=== PATIENT | female | born 2000 | race Caucasian/White ===

== ENCOUNTER 2020-06-03 11:15 | Emergency (ER) | payer SELFPAY ==
[2020-06-03 11:20] VITALS: BP 139/99; PULSE 93; RESP 18; TEMP 36.3
--- NOTE | 2020-06-03 11:35 | ED.ABDPAIN ---
HPI - Abdominal Pain General Chief Complaint: Vaginal Bleeding Stated Complaint: VAG BLEEDING Time Seen by Provider: 06/03/20 11:22 Source: patient Mode of arrival: ambulatory Limitations: no limitations History of Present Illness HPI narrative: Patient with 19-year-old female who presents to emergency department for evaluation of vaginal bleeding has been present since last week patient has been bleeding off and on noting this morning the bleeding became heavier going through a super absorbent pad in 2 hours patient also noted intensified cramping. Patient was placed on control by gynecology in the recent past. On arrival patient notes she took ibuprofen and Tylenol with improvement. Related Data Home Medications Medication Instructions Recorded Confirmed drospirenone (contraceptive) 4 mg PO DAILY 06/03/20 [Slynd] Allergies Allergy/AdvReac Type Severity Reaction Status Date / Time amoxicillin Allergy Unknown Unknown Verified 05/15/19 14:42 corn Allergy Unknown RASH Verified 05/15/19 14:42 Penicillins Allergy Unknown Verified 05/15/19 14:42 wheat Allergy Unknown RASH Verified 05/15/19 14:42 seasonal allergens AdvReac Unknown Uncoded 05/10/17 18:37 Review of Systems Review of Systems: All systems reviewed & are unremarkable except as noted in HPI and below PMFSH Past Medical History Medical History (Updated 06/03/20 @ 12:49 by Maurice Gore PA-C) Obesity Exam Narrative: Exam Narrative: GENERAL: Well-appearing, obese, and in no acute distress. HEAD: Normocephalic, atraumatic. EYES: PERRLA and EOMI. ENT: Nares clear, no rhinorrhea or epistaxis. Mucous membranes moist. Oropharynx without tonsillar hypertrophy exudate or other lesions. NECK: Supple. No adenopathy or masses. CHEST: Clear to auscultation. No respiratory distress. No wheezes rales or rhonchi HEART: Regular rate and rhythm. No murmur heard. Normal peripheral pulses. ABDOMEN: Soft, nontender, nondistended EXTREMITIES: Normal range of motion. No edema. SKIN: Warm, dry, no rash. NEURO: No focal deficits. Alert and oriented x3. PSYCH: Normal mood and affect. Course Course Emergency Course: Patient in the room in no distress no high risk changes in the blood work felt appropriate for outpatient reevaluation by gynecology provided with reasons to return. Patient hemodynamically stable Vital Signs Vital signs: Vital Signs Temperature 97.4 F L 06/03/20 11:20 Pulse Rate 93 06/03/20 11:20 Respiratory Rate 18 06/03/20 11:20 Blood Pressure 139/99 H 06/03/20 11:20 Temperature 97.4 F L 06/03/20 11:20 Pulse Rate 86 06/03/20 12:02 Respiratory Rate 18 06/03/20 11:20 Blood Pressure 119/83 06/03/20 12:02 MDM - Abdominal Pain MDM Narrative Medical decision making narrative: Patient with vaginal bleeding hemodynamically stable no high risk changes in the blood work or imaging hydrated in the emergency department given IV Tylenol in the room in no distress felt appropriate for outpatient reevaluation by gynecology provided with reasons to return patient is afebrile nontoxic-appearing no distress Lab Data Result diagrams: 06/03/20 11:44 06/03/20 11:44 Labs: Lab Results 06/03/20 06/03/20 Range/Units 11:44 11:44 WBC 8.7 (4.5-10.0) K/mm3 RBC 4.73 (4.2-5.4) M/mm3 Hgb 13.4 (12.0-15.0) g/dL Hct 39.9 (37.0-47.0) % MCV 84.4 (80-100) fl MCH 28.3 (26-34) pg MCHC 33.6 (32-36) g/dl RDW 14.2 (11.5-14.5) % Plt Count 295 (150-375) k/mm3 MPV 9.6 (7.4-10.4) fl Immature Gran % (Auto) 0.2 (0-0.5) % Neut % (Auto) 58.9 (45.5-73.1) % Lymph % (Auto) 32.7 (18.3-44.2) % [place] % (Auto) 5.4 (2.6-8.5) % Eos % (Auto) 2.5 (0-4.4) % Baso % (Auto) 0.3 (0.2-1.2) % Lymph # (Auto) 2.83 (0.9-3.2) K/mm3 [place] # (Auto) 0.5 (0.1-0.6) K/mm3 Eos # (Auto) 0.2 (0-0.3) K/mm3 Baso # (Auto) 0.0 (0.0-0.1) K/mm3 Abs Immat Gran (auto) 0.02
[2020-06-03 11:55] LABS: Basophils Percent Auto 0.3 % (0.2-1.2); Eosinophils Absolute Auto 0.2 K/mm3 (0-0.3); Eosinophils Percent Auto 2.5 % (0-4.4); Hematocrit 39.9 % (37.0-47.0); Hemoglobin 13.4 g/dL (12.0-15.0); Immature Granulocyte Absolute 0.02 K/mm3 (0.00-0.031); Immature Granulocyte Percent A 0.2 % (0-0.5); Lymphocytes Absolute Auto 2.83 K/mm3 (0.9-3.2); Lymphocytes Percent Auto 32.7 % (18.3-44.2); Mean Corpuscular HGB Conc 33.6 g/dl (32-36); Mean Corpuscular Hemoglobin 28.3 pg (26-34); Mean Corpuscular Volume 84.4 fl (80-100); Mean Platelet Volume 9.6 fl (7.4-10.4); Monocytes Absolute Auto 0.5 K/mm3 (0.1-0.6); Monocytes Percent Auto 5.4 % (2.6-8.5); Neutrophils Absolute Auto 5.1 K/mm3 (1.3-6.7); Neutrophils Percent Auto 58.9 % (45.5-73.1); Platelet Count Result 295 k/mm3 (150-375); Red Blood Count 4.73 M/mm3 (4.2-5.4); Red Cell Distribution Width 14.2 % (11.5-14.5); White Blood Count 8.7 K/mm3 (4.5-10.0)
[2020-06-03] MEDS: SODIUM CHLORIDE 0.9% IV 1,000 ML 999 ML IV CONT (11:56)
[2020-06-03 11:59] VITALS: BP 121/66; PULSE 75
[2020-06-03 12:01] VITALS: BP 129/76; PULSE 78
[2020-06-03 12:02] VITALS: BP 119/83; PULSE 86
[2020-06-03 12:06] LABS: Blood Urea Nitrogen 11 mg/dL (7-17); Calcium 8.9 mg/dL (8.4-10.2); Carbon Dioxide 21 mmol/L (22-30); Chloride 107 mmol/L (98-107); Estimated Glomerular Filt Rate > 60; Glucose 118 mg/dL (65-105); Potassium 4.1 mmol/L (3.4-5.0); Sodium 138 mmol/L (137-145)
[2020-06-03 13:10] VITALS: BP 130/70; PULSE 80; RESP 80; O2SAT 99
== END 2020-06-03 13:12 | disposition home or self-care (01) ==
PROVIDERS: Emergency Medicine Emergency Medical Services; Emergency Provider Emergency Medicine; PCP Family Medicine
DX: N93.9 Abnormal uterine and vaginal bleeding, unspecified (principal); E66.9 Obesity, unspecified
CPT/HCPCS: 36415; 80048; 85025; 96361; 96374; 99284; J0131; J7030

== ENCOUNTER → 2021-05-07 00:09 | Outpatient (CLI) | payer OTHER, SELFPAY ==
[2021-05-07 19:27] LABS: SARS-CoV-2 RNA PCR Negative
== END ==
PROVIDERS: PCP Family Medicine; Visit Provider Obstetrics & Gynecology
DX: Z01.812 Encounter for preprocedural laboratory examination (principal); Z20.822 Contact with and (suspected) exposure to COVID-19
CPT/HCPCS: C9803; U0003; U0005

== ENCOUNTER 2021-05-10 00:08 | Day surgery (SDC) | payer OTHER, SELFPAY ==
[2021-04-27 10:52] VITALS: BMI 49.0
--- NOTE | 2021-05-09 13:49 | WPDANESEPPF ---
Anes - Initial Pre Proc Eval Procedure: Operation Date: 05/10/21 10:30 Proposed Procedures p Hysteroscopy Endometrial Biopsy With Polypectomy - Omar Grey MD Date/Time: 05/09/21 13:49 Surgeon: Omar Grey MD Pre Op Diagnosis: lesion of endometrium Patient Data Age: 20 Gender: F Height: 1.63 m Weight: 129.54 kg Allergies Allergy/AdvReac Type Severity Reaction Status Date / Time amoxicillin Allergy Unknown Hives Verified 04/27/21 10:48 corn Allergy Unknown RASH Verified 04/27/21 10:48 Penicillins Allergy Unknown Hives Verified 04/27/21 10:48 wheat Allergy Unknown RASH Verified 04/27/21 10:48 seasonal allergens AdvReac Unknown Congested Uncoded 04/27/21 10:48 Home Medications Medication Instructions Recorded Confirmed Type drospirenone (contraceptive) 4 mg PO DAILY 06/03/20 04/27/21 History [Slynd] albuterol sulfate 1 puff INHALATION PRN PRN 04/27/21 04/27/21 History cyclobenzaprine [Flexeril] 10 mg PO TID PRN 04/27/21 04/27/21 History naproxen 500 mg PO BID PRN 04/27/21 04/27/21 History Patient hx anesthesia problems: none Family hx anesthesia problems: none PMFSH Past Medical History Medical History (Updated 05/09/21 @ 13:49 by Norm Westbrook MD) Fibromyalgia Morbid obesity with BMI of 45.0-49.9, adult Obesity Social History Social History Smoking status: Light tobacco smoker Tobacco type: cigarettes Second hand tobacco smoke exposure: Yes Additional smoking assessment comments: STATES MAYBE WILL SMOKE 1-2 CIGARETTES WHILE DRINKING Alcohol intake: current Alcohol use details: STATES MAYBE 3-4 DRINKS EVERY 2 WEEKS Substance use: current Substance use type: marijuana Other substance usage details: 1/3GM DAILY Last use: 04/26/21 Living arrangements: with family Spiritual care concerns: No Anes - Eval Final PreProcedure Day of Procedure 05/09/21 13:49 Patient weight: morbidly obese Heart: regular rate and rhythm Lungs: clear to auscultation and normal air movement Airway: Mallampati scale class II Neurological: alert and oriented Last oral intake: >/= 8 hours ASA classification: III Emergent: no Anesthetic plan: proceed Anesthesia type and monitoring: general LMA Informed Consent: The patient's anesthetic plan and its attendant risks and benefits were discussed with the patient/family/POA. Questions were solicited and answers provided to the satisfaction of the patient/family/POA.
[2021-05-10] MEDS: LACTATED RINGERS 1,000 ML 30 ML IV CONT (09:31)
[2021-05-10] MEDS: ACETAMINOPHEN 500 MG TABLET 1000 MG PO (09:32)
[2021-05-10 09:33] VITALS: BP 147/97; PULSE 94; RESP 16; TEMP 36.1; O2SAT 99; BMI 50.9
--- NOTE | 2021-05-10 09:56 | WPDHPUPDATE1 ---
History and Physical Update Update Date/Time: 05/10/21 09:56 History and Physical has been reviewed, including an updated exam of the patient. There are NO changes in the patient's condition. Risks, benefits, and alternatives have been discussed and questions answered. Patient agrees to proceed with procedure.
[2021-05-10 10:51] VITALS: BP 128/84; PULSE 90; RESP 16; O2SAT 100
[2021-05-10 11:20] VITALS: BP 132/94; PULSE 81; RESP 20
--- NOTE | 2021-05-10 11:21 | W.PM.PROC2 ---
Procedure Note - Detailed Date of Procedure 05/10/21 Pre-op Diagnosis lesion of endometrium Post-op Diagnosis same Procedure Performed Hysteroscopy D&C Surgeon Omar Grey MD Anesthesia MAC Indications abnormal uterine bleeding, endometrial lesion Description of Procedure the patient was taken the operating room. She was prepped and draped in the dorsal lithotomy position after induction of mac anesthesia. A speculum was placed in the vagina. The cervix was grasped with a tenaculum. The cervix was dilated about 1 cm. The hysteroscope was inserted. The intrauterine cavity and endocervix were evaluated. Hysteroscope was withdrawn. A medium-size curette was used to curettage all the surfaces were within the endometrial cavity. the sample was collected on Telfa and sent to pathology. The hysteroscope was reinserted and the above findings were noted. Patient tolerated the procedure well. The speculum and tenaculum were removed. She was taken recovery room in stable condition. Sponge lap and needle counts were correct x2. Estimated Blood Loss 40 Drains No Packing No Pathology yes Complications No immediate complications Condition stable Disposition PACU
[2021-05-10 11:45] VITALS: BP 118/73; PULSE 75; RESP 20
== END 2021-05-10 11:58 | disposition home or self-care (01) ==
PROVIDERS: PCP Family Medicine; Visit Provider Obstetrics & Gynecology
PROC: 0U5B8ZZ Destruction of Endometrium, Via Natural or Artificial Opening Endoscopic (ICD-10-PCS; CPT 58563; principal; 2021-05-10 10:30)
DX: N85.8 Other specified noninflammatory disorders of uterus (principal); M79.7 Fibromyalgia; E66.01 Morbid (severe) obesity due to excess calories; Z68.43 Body mass index [BMI] 50.0-59.9, adult; F17.210 Nicotine dependence, cigarettes, uncomplicated; F12.90 Cannabis use, unspecified, uncomplicated
CPT/HCPCS: 58558; 88305; A9270; J2250; J2405; J2704; J3010; J7030; J7120

== ENCOUNTER 2022-06-15 17:56 | Outpatient (RCR) | payer OTHER, SELFPAY ==
[2022-06-15 18:36] LABS: Beta HCG Quantitative < 2.39 mIU/ML
== END 2022-09-13 23:59 | disposition home or self-care (01) ==
LOC: ANHLAB 17:56
PROVIDERS: PCP Family Medicine; Visit Provider Obstetrics & Gynecology
DX: N91.2 Amenorrhea, unspecified (principal)
CPT/HCPCS: 36415; 84702

== ENCOUNTER 2025-07-29 01:21 | Day surgery (SDC) | payer BC, SELFPAY ==
--- OUTSIDE RECORDS SUMMARY | 2024-07-04 10:20 | XMS_ITS ---
Author Organization [facility] Address [address] [place] [id number] Care Team Providers Care Product Control And Logistics Analyst Name Role Phone Desire Agosto Primary Care Provider REASON FOR VISIT lab fu Medications Medication SIG (Take, Route, Frequency, Duration) Notes Start Date End Date Status Unithroid 75 mcg (0.075 mg) tablet 1 tab(s) orally once a day; Duration: 60 days *Pick strength-form from Medispan for eRX* 05/01/2024 Unknown metFORMIN HCl ER 500 mg tablet, extended release 1 tab(s) orally once daily with large meal; Duration: 90 days *Pick strength-form from Medispan for eRX* 05/01/2024 Unknown Encounters Encounter Location Date Provider Diagnosis [facility] Dr[facility] Agosto [address] [place] [id number] 07/04/2024 Desire Agosto Plan Of Treatment No Information Progress Notes * BENNETT GARZAADOB: 8 (24 yo F)Acc No.[id number]:07/04/2024 Progress Notes Patient: STARR POSADAS Provider: Isaiah Agosto MD :2000 A ge:23 Y S ex:Female Date:07/04/2024 Phone: [id number] Subjective: * Chief Complaints: * L ab fu * Medications: U nknownmetFORMIN HCl ER 500 mg tablet, extended release 1 tab(s) orally once daily with large meal , Notes to Pharmacist: *Pick strength-form from Medispan for eRX*Unithroid 75 mcg (0.075 mg) tablet 1 tab(s) orally once a day , Notes to Pharmacist: *Pick strength-form from Medispan for eRX*Unknown metFORMIN HCl ER 500 mg tablet, extended release 1 tab(s) orally once daily with large meal , Notes to Pharmacist: *Pick strength-form from Medispan for eRX*Unknown Unithroid 75 mcg (0.075 mg) tablet 1 tab(s) orally once a day , Notes to Pharmacist: *Pick strength-form from Medispan for eRX* * Electronic signature of Anson Agosto MD on 07/29/2025 at 01:24 AM CDT Sign off status: Pending * Provider: Isaiah Agosto MD Date: 0 07/04/2024 Generated for Loly cruz/Daryl/Candace on: 0 07/29/2025 01:24 AM CDT
--- OUTSIDE RECORDS SUMMARY | 2024-10-04 16:00 | XMS_ITS ---
Author Organization [facility] Address [address] [place] [address] [place] [id number] Care Team Providers Care Aegis Operations Specialist Name Role Phone Desire Agosto Primary Care Provider [phone] Migration, Provider Unavailable Unavailable REASON FOR VISIT Multum To Medispan Conversion Encounter Medications Medication SIG (Take, Route, Frequency, Duration) Notes Start Date End Date Status Unithroid 75 MCG (0.075 MG) TABLET 1 TAB(S) ORALLY ONCE A DAY; Duration: 60 DAYS *Please review and pick correct strength-formulatio n from Medispan options. If intended option is not shown, discontinue and re-order from Quick Search* *Pick strength-form from Medispan for eRX* 05/01/2024 Unknown metFORMIN HCl ER 500 MG Tablet Extended Release 24 Hour 1 tab(s) orally once daily with large meal; Duration: 90 days 05/01/2024 Unknown Encounters Encounter Location Date Provider Diagnosis [address] [place] [id number] 10/04/2024 Provider Migration Plan Of Treatment No Information Progress Notes * CAITLIN GARZAB: 8 (24 yo F)Acc No.[id number]:10/04/2024 Patient: STARR POSADAS Provider: Yesenia waters Migration :2000 A ge:23 Y S ex:Female Date:10/04/2024 Phone: [facility] Pcp:Desire Agosto Subjective: * Chief Complaints: * M ultum To Medispan Conversion Encounter * Medications: U nknownmetFORMIN HCl ER 500 MG Tablet Extended Release 24 Hour 1 tab(s) orally once daily with large meal Unithroid 75 MCG (0.075 MG) TABLET 1 TAB(S) ORALLY ONCE A DAY , Notes to Pharmacist: *Please review and pick correct strength-formulation from Medispan options. If intended option is not shown, discontinue and re-order from Quick Search* *Pick strength-form from Medispan for eRX*Unknown metFORMIN HCl ER 500 MG Tablet Extended Release 24 Hour 1 tab(s) orally once daily with large meal Unknown Unithroid 75 MCG (0.075 MG) TABLET 1 TAB(S) ORALLY ONCE A DAY , Notes to Pharmacist: *Please review and pick correct strength-formulation from Medispan options. If intended option is not shown, discontinue and re-order from Quick Search* *Pick strength-form from Medispan for eRX* * Electronic signature of Eleazar curran Migration on 07/29/2025 at 01:25 AM CDT Sign off status: Pending * Provider: Yesenia waters Migration Date: 12/04/2023 Generated for Loly cruz/Daryl/Candace on: 07/29/2025 01:25 AM CDT
--- NOTE | 2025-07-21 18:22 | PC.NURSE ---
Report to the Outpatient Waiting Room, entrance under the green pavilion located off [facility], at time 0700 on date 07/29/25. Planned Procedure Time: 0900.? Time changes happen often and if your time is changed the preop area will call you the afternoon before. - You and your visitor will be asked to self-screen and do not enter if you have any COVID symptoms. Please call surgeon if you need to reschedule. - A mask is optional within the hospital at this time. Patients may have clear liquids (water, carbonated beverages, clear teas, apple juice) until 3 hours prior to surgery with a maximum of 20 ounces. 0600 - No food from midnight until time of surgery and no smoking, or chewing tobacco (or any form of nicotine). No chewing gum, candy or mints. - Infants may have breast milk until 4 hours before surgery, infant formula 6 hours prior to surgery. - Children will be allowed to drink immediately following surgery.? If applicable, please bring a bottle or sippy cup to assist with drinking. Juice, water, soda, and popsicles are readily available.? For infants on formula, please bring formula the day of surgery.? Pacifiers are allowed. Take only the following medications with a SIP of water on the morning of surgery: NONE DO NOT STOP ANY OF YOUR OTHER PRESCRIPTION MEDICATIONS PRIOR TO SURGERY EXCEPT THE FOLLOWING Hold all vitamins and supplements for 3 days per anesthesiologist. Medications to discontinue per physician IRON SUPPLEMENT Date to take last dose 07/26/25 Please no make-up, nail mohawk, hairspray, perfume, deodorant, or body powder the day of surgery.? No jewelry (including any body piercings) or valuables the day of surgery, leave them at home.? Please take a shower or bath the night before, or the morning of, surgery with an antibacterial soap.? Wear comfortable, loose fitting clothing.? Children are encouraged to wear pajamas. - Jewelry must be removed prior to entering the operating room.? Rings and piercings that are not removed may be cut off. - The hospital will not accept responsibility for valuables.? - Please leave all valuables, including medications, at home the day of surgery. If you are going home after surgery, a licensed truck driver heavy must drive you home.? - NO public transportation without another adult if you receive anesthesia. - We recommend that an adult stay with you for 24 hours following discharge. - We also recommend that you do not drive, make important decision, drink alcoholic beverages, or take any drugs that were not prescribed by your health care provider for at least 24 hours after your discharge time. For Pediatric surgeries, we recommend two adults accompany the child home. Follow any additional instructions given to you from your surgeon. Telephone instructions given to Patient- Audra Tariq and asked if any additional questions and then verbalized understanding. Patient advised to call surgeon office or pre surgery nurse liaison [phone] if any additional questions.
[2025-07-21 18:26] VITALS: BMI 48.1
--- OUTSIDE RECORDS SUMMARY | 2025-07-29 01:24 | XMS_ITS | Clinical Summary ---
Author Organization [facility] Address [address] [place] [address] Care Team Providers Care Medical Lab Technician Name Role Phone Kamilla John MD Primary Care Provider [phone] Source Comments [facility],non-owned Affiliates and Associated Physician Practices is amultiple site organization consisting of ambulatory clinics and hospital sitesin [place], [place], [place] and [place]. This disclosure is being madepursuant to the Care Everywhere program and may not contain all information available regarding this patient. Last updated 18.[facility] Allergies Active Allergy Reactions Criticality Noted Date Comments Amoxicillin Urticaria Medium 01/15/2023 Penicillins Urticaria Medium 01/15/2023 Medications * Be aware that medications may not be up to date on this document. Alwaysverify current medications with the patient. montelukast (SINGULAIR) 10 MG tablet Take 1 Tab by mouth every evening. 30 3 02/23/2010 Active dilTIAZem coated beads 24hr (Cardizem CD) 120 MG capsule Take 1 (one) capsule by mouth once daily Do not crush or chew. Active fluticasone hfa 110 (Flovent HFA 110) 110 MCG/ACT inhaler Inhale 2 (two) puffs by mouth 2 times daily Active Immunizations Immunization Administration Dates Next Due DPT 06/20/2004, 1,03/01/2000,02/22/1999,12/30/18 99 HEP B VACCINE, PED/ADOL 02/20/2000,02/22/1999, HIB BOOSTER 02/20/2000,02/22/1999,1998 INFLUENZA VACCINE 09/25/2008,10/12/2004 MMR 06/20/2004,11/07/1999 POLIO IPV 08/25/2003,02/22/1999,1998 POLIO OPV 11/07/1999 PPD 08/25/2003 ROTAVIRUS, PENTAVALENT 02/22/1999,1998 VARICELLA 06/16/2002 Family History Medical History Relation Name Comments Diabetes - Type 2 Father Hypertension Father Diabetes - Type 2 Mother Polycystic Ovary Syndrome Mother Thyroid Disease Mother Relation Name Status Comments Father Mother Social History Tobacco Use Types Packs/Day Years Used Date Smoking Tobacco: Never Assessed Comments No Sex and Gender Information Value Date Recorded Sex Assigned at Not on file Legal Sex Female 6:42 AM IRON CARRIER Gender Identity Not on file Sexual Orientation Not on file Plan of Treatment Health Maintenance Due Date Last Done Comments DTAP/TDAP/TD VACCINES (6 - Tdap) 2009 06/20/2004, 07/09/2001, 03/01/2000, Additional history exists HIV SCREENING 2013 HPV VACCINE (1 - 3-dose series) 2013 HEPATITIS C SCREENING 10/14/2016 PAP SMEAR 2019 DEPRESSION SCREENING 11/19/2024 COVID-19 VACCINE ( season) 2025 INFLUENZA VACCINE (#1) 2025 5, 09/25/2008, 10/12/2004 ZOSTER VACCINE (1 of 2) 2048 HEPATITIS B VACCINE Completed 02/20/2000, 02/22/1999, 1998 HIB VACCINE Completed 02/20/2000, 04/1999, 1998 MENINGOCOCCAL (Group B) VACCINE SHARED DECISION-MAKING Aged Out No longer eligible based on patient's age to complete this topic MENINGOCOCCAL GROUPS A/C/Y/W VACCINE Aged Out No longer eligible based on patient's age to complete this topic PNEUMOCOCCAL VACCINE Aged Out No long er eligible based on patient's age to complete this topic Insurance [facility] * Guarantor: STARR DAILY Account Type Relation to Patient Date of Phone Billing Address Personal/Family 2000 [address] [phone] Care Teams Medical Lab Technician Relationship Specialty Start Date End Date Kamilla John MD PCP - General 06/02/19
--- OUTSIDE RECORDS SUMMARY | 2025-07-29 01:25 | XMS_ITS | Clinical Summary ---
Author Organization [facility] Address [address] [place] [address] Care Team Providers Care Angiography Technologist Name Role Phone No, Physician Unavailable Eduardo Aldridge MD Primary Care Provider [phone] Allergies Active Allergy Reactions Criticality Noted Date Comments Amoxicillin Hives Medium 05/02/2019 Sulfamethoxazole-Trimethoprim Swelling,Rash Medium 03/2021 [place] Oil Itching Low 05/02/2019 Latex Rash Medium 07/27/2025 Naproxen Dizziness Low 11/23/2020 Penicillins Hives Medium 05/02/2019 Wheat Swelling Medium 05/02/2019 Medications albuterol HFA (ProAir HFA) 90 mcg/actuation inhaler Inhale 2 puffs every 4 (four) hours as needed for wheezing or shortness of breath 8.5 g 4 Active albuterol HFA (PROVENTIL HFA,VENTOLIN HFA,PROAIR HFA) 90 mcg/actuation inhalerIndicati ons:Wheezing Inhale 2 puffs every 6 (six) hours as needed for wheezing 5 02/20/20 26 Active ferrous sulfate ER (SLOW IRON) 142 mg (45 mg of elemental iron) tablet Take 1 tablet (142 mg total) by mouth daily with breakfast Active azithromycin (ZITHROMAX) 250 mg tabletIndicatio ns:Strep throat Take 2 tabs (500 mg) by mouth today, than 1 tab (250 mg) daily for 4 days. 6 tablet 5 08/01/20 25 Active Active Problems Problem Noted Date Diagnosed Date Morbid obesity with BMI of 40.0-44.9, adult 09/19 Assessment & Plan (10/06/2022 3:36 PM [employer]): Losing weight with mounjaro Chronic midline thoracic back pain 09/07/2022 Chronic bilateral low back pain without sciatica 12/06/2020 Hyperglycemia 12/18/2019 Chronic hypertension 02/27/2019 Polycystic ovary syndrome 06/12/2018 Resolved Problems Problem Noted Date Diagnosed Date Resolved Date Acute bronchitis 04/09/2021 07/02/2023 Assessment & Plan (04/09/2021 9:14 AM CDT): New Order zpack, medrol, guaituss AC, flonase, advair, albuterol Recommended to go get tested for COVID today URI with cough and congestion 12/18/2019 07/02/2023 Supervision of high-risk pre gnancy, unspecified trimester 02/27/2019 12/18/2019 Abnormal ultrasound (can't visualize stomach) 02/27/2019 12/18/2019 Gestational diabetes mellitu s (GDM), antepartum 02/27/2019 12/18/2019 Amenorrhea 03/06/2017 07/02/2023 Encounters Date Type Department Care Team Description 07/27/2025 9:30 AM CDT Office Visit [facility] Care at [address] [phone] Marah Sarmiento, JOB Strep throat (Primary Dx); Upper respiratory tract infection, unspecified type from Last 3 Months Immunizations Immunization Administration Dates Next Due DTP 06/20/2004, 1,03/01/2000,02/22,1998 DTaP 07/09/2001 DTaP 5 Pertussis 06/20/2004, 0,02/22/1999,12/20 HPV, Quadrivalent 08/24/2015,04/29/2015 HPV9 11/16/2015 Hep A, Pediatric 02/24/2016,08/24/2015 Hep B, Adolescent or Pediatric 02/20/2000,1998,1998 Hib (PRP-D) 02/20/2000,02/22/1999,1998 Hib (PRP-T) 02/20/2000,02/22/1999,1998 IPV 08/25/2003, 9,02/22/1999,12/20 Influenza, Live, Intranasal, Quadrivalent 08/24/2015 Influenza, Split 09/25/2008 Influenza, Unspecified 09/07/2022(Deferr ed: Patient Refused),08/19/2022(Deferred: Patient Refused),08/19/2022(Deferred: Patient Refused),12/14/2021(Deferred: Patient decision),08/19/2021(Deferred: Patient Refused),08/19/2021(Deferred: Patient Refused),08/19/2021(Deferred: Patient Refused),08/19/2020(Deferred: Patient Refused),06/19/2020(Deferred: Patient Refused),08/19/2019(Deferred: Patient Refused),10/12/2004 MMR 06/20/2004,11/07/1999 Meningococcal MCV4P (Menactra) 04/29/2015 OPV 11/07/1999 PPD TEST 02/21/2021,06/28/2016,08/25/2003 Rho (D) Immune Globulin, IV or IM 05/30/2019,05/2019 Rotavirus Pentavalent 02/22/1999,1998 Tdap 04/24/2019,01/17/2012 Varicella 08/24/2015,06/16/2002 Surgical History Surgery Date Site/Laterality Comments TONSILLECTOMY/ADENOIDECTOMY TONSILLECTOMY/ADENOIDECTOMY 11/19/2003 - 11/18/2004 FLEXIBLE BRONCHOSCOPY W/ UPP ER ENDOSCOPY 11/19/2016 - 11/18/2017 ENDOMETRIAL BIOPSY 04/19/2021 - 05/18/2021 DILATION AND CURETTAGE OF UTERUS 05/19/2022 - 06/18/2022 CERVICAL POLYPECTOMY 05/19/2022 - 06/18/2022 Medical History Medical History Date Comments Gestational diabetes Migraine Hyperthyroidism Polycystic ovary syndrome PCOS (polycystic ovarian syndrome) Family History Medical History Relation Name Comments Diabetes Father Heart disease Father Hypertension Father Diabetes Mother Hypertension Mother Thyroid disease Mother Hypertension Other 1 Diabetes Other 2 No Known Problems Paternal Half-Brother 1 No Known Problems Paternal Half-Brother 2 No Known Problems Paternal Half-Sister 1 No Known Problems Paternal Half-Sister 2 No Known Problems Paternal Half-Sister 3 No Known Problems Paternal Half-Sister 4 No Known Problems Sister Relation Name Status Comments Father Alive Mother Other 1 Other 2 Paternal Half-Brother 1 Alive Paternal Half-Brother 2 Alive Paternal Half-Sister 1 Alive Paternal Half-Sister 2 Alive Paternal Half-Sister 3 Alive Paternal Half-Sister 4 Alive Sister Alive Social History Tobacco Use Types Packs/Day Years Used Date Smoking Tobacco: Former Smokeless Tobacco: Never Tobacco Cessation:Counseling Given: Not Answered Alcohol Use Standard Drinks/Week Comments Not Currently 0 (1 standard drink = 0.6 oz pur e alcohol) AUDIT-C Answer Date Recorded Frequency of Alcohol Consumption Never 02/27/2019 Average Number of Drinks Not on file 019 Frequency of Binge Drinking Not on file 02/17 PHQ-2 Answer Date Recorded PHQ-2 Total Score (If total score is 3 or more points, staff should administer the PHQ-9) 0 07/02/2023 Personal Safety Answer Date Recorded Have you ever been in or are you currently in a harmful physical or emotional relationship or is someone making you feel afraid or unsafe? Denies 07/08/2023 Comments No Sex and Gender Information Value Date Recorded Sex Assigned at Not on file Legal Sex Female 6:55 PM [employer] Gender Identity Female 12/14/2021 11:30 AM [employer] Sexual Orientation Straight 12/14/2021 11 :30 AM [employer] Obstetrics History Para Term AB IAB SAB Ectopic Multiple Livin g Live Births 1 0 0 0 0 0 0 0 Date Outcome GA Total Labor Labor/2nd/3rd Weight Sex Type Anes PTL Cindy A1 A5 Name Clin Last Filed Vital Signs Vital Sign Reading Time Taken Comments Blood Pressure 128/76 07/27/2025 9:02 AM CDT Pulse 87 07/27/2025 9:02 AM CDT Temperature 36.5 C (97.7 F) 07/27/2025 9:02 AM CDT Respiratory Rate 18 07/27/2025 9:02 AM CDT Oxygen Saturation 99% 07/27/2025 9:02 AM CDT Inhaled Oxygen Concentration - - Weight 129.4 kg (285 lb 3.2 oz) 07/27/2025 9:02 AM CDT Height 165.1 cm (5' 5) 07/27/2025 9:02 AM CDT Body Mass Index 47.46 07/27/2025 9:02 AM CDT Plan of Treatment Health Maintenance Due Date Last Done Comments Cervical Cancer Screening 1998 Depression Screening 07/02/2024 07/02/2023, 05/30/2023, 09/07/2022, Additional history exists Regular Well Visit/Exam 18-64 07/02/2024 07/02/2023 DTaP/Tdap/Td Vaccine (8 - Td or Tdap) 04/24/2029 04/24/2019, 01/17/2012, 06/20/2004, Additional history exists Hepatitis B Screening Completed 02/20/2000 , 02/22/1999, 1998 Influenza Vaccine Discontinued 08/24/2015, , 10/12/2004 Varicella Vaccines Completed 08/24/2015, 06/16/2002 HPV Vaccines Completed 11/16/2015, 04/2015, 04/29/2015 Hepatitis C Screening Completed 12/12/2018, 019 Pneumococcal vaccine <65 Aged Out No longer eligible based on patient's age to complete this topic Procedures Procedure Name Priority Date/Time Associated Diagnosis Comments POC INFLUENZA A/B, COVID-19 ANTIGEN Routine 07/27/2025 9:19 AM CDT Upper respiratory tract infection, unspecified type POCT RAPID STREP Routine 07/27/2025 9:19 AM CDT Upper respiratory tract infection, unspecified type HEPATITIS C ANTIBODY Routine 12/12/2018 from Last 3 Months or Most Recently Relevant to Health Maintenance Results * POC Influenza A/B, COVID-19 antigen (07/27/2025 9:19 AM CDT) Influenza A Ag, POC Negative Negative [facility] Influenza B Ag, POC Negative Negative [facility] COVID-19 Ag POC Presumptive Negative Presumptive Negative, Invalid [facility] Nasal 07/27/2025 9:19 AM CDT Marah Sarmiento AUTOMATED WEAVER POINT OF CARE TEST ORDERABLES F inal Result [facility]OPE[facility] [address] [place] [address] * (ABNORMAL) POCT rapid strep A (07/27/2025 9:19 AM CDT) Rapid Strep A, POC Positive(A ) Negative [facility] Swab 07/27/2025 9:19 AM CDT Marah Sarmiento AUTOMATED WEAVER POINT OF CARE TEST ORDERABLES F inal Result Performing Organization Address City/[facility] de Phone Number [facility] [address] [place] [address] * Hepatitis C antibody (12/12/2018) Hep C Ab negative Blood specimen (specimen) Byron Grey MD LAB MICROBIOLOGY - GENERAL OR DERABLES Final Result from Last 3 Months or Most Recently Relevant to Health Maintenance Insurance [facility] CHOICE PLUS Advance Directives For more information, please contact: [phone] * Full Code (Latest Code Status on File) Date Activated Date Inactivated Comments 05/02/2019 7:15 PM 05/06/2019 6:42 PM Full CPR in case of cardiopulmonary arrest Care Teams Angiography Technologist Relationship Specialty Start Date End Date Eduardo Aldridge MD PCP - General Family Medicine 12/18/19 No, Physician 05/02/19
--- OUTSIDE RECORDS SUMMARY | 2025-07-29 01:25 | XMS_ITS | Patient Health Record ---
Author Organization [facility] Address [address] [place] [address] [place] [id number] Care Team Providers Care Painting Machine Operator Name Role Phone Desire Agosto Primary Care Provider Migration, Provider Unavailable Unavailable Reason For Referral No Information Medications Medication SIG (Take, Route, Frequency, Duration) Notes Start Date End Date Status Unithroid 75 MCG (0.075 MG) TABLET 1 TAB(S) ORALLY ONCE A DAY; Duration: 60 DAYS *Please review and pick correct strength-formulatio n from [employer] options. If intended option is not shown, discontinue and re-order from Quick Search* *Pick strength-form from [employer]IV[employer] for eRX* 05/01/2024 Unknown metFORMIN HCl ER 500 MG Tablet Extended Release 24 Hour 1 tab(s) orally once daily with large meal; Duration: 90 days 05/01/2024 Unknown Social History Social History Additional Details Category Social Info Options Details Migrated Social History Migrated Social History (Alcohol:):yes OCCASIONAL (Recreational drug use:):yes MARIJAUNA Problems Problem Type SNOMED Code ICD Code Onset Dates Problem Status W/U Status Risk Notes Problem Hypothyroidism (69023375) Hypothyroidism, unspecified (E03.9) Active confirmed Problem Hyperglycemia due to type 2 diabetes mellitus (525256109498289) Type 2 diabetes mellitus with hyperglycemia (E11.65) Active confirmed Problem Polycystic ovary syndrome (disorder) (771285091) Polycystic ovarian syndrome (E28.2) Active confirmed Encounters Encounter Location Date Provider Diagnosis [address] [place] [id number] 10/04/2024 Provider Migration Plan Of Treatment No Information Medical (General) History Medical History History ICD Code HYPERTENSION Surgical History Surgery Date(Month/Year) tonsillectomy adenoidectomy ENDOSCOPY
--- NOTE | 2025-07-29 07:29 | WPDANESEPPF ---
Anes - Initial Pre Proc Eval Procedure: Operation Date: 07/29/25 09:00 Proposed Procedures p Hysteroscopy with Biopsy of Endometrium and or Polypectomy - Byron Grey MD Date/Time: 07/29/25 07:29 Surgeon: Byron Grey MD Pre Op Diagnosis: endometrial polyp Patient Data Age: 24 Gender: F Height: 1.63 m Weight: 127.2 kg Allergies Allergy/AdvReac Type Severity Reaction Status Date / Time amoxicillin Allergy Unknown Hives Verified 07/21/25 18:08 corn Allergy Unknown RASH Verified 07/21/25 18:08 Penicillins Allergy Unknown Hives Verified 07/21/25 18:08 wheat Allergy Unknown RASH Verified 07/21/25 18:08 latex Allergy Rash Verified 07/21/25 18:08 seasonal allergens AdvReac Unknown Congested Uncoded 07/21/25 18:08 Home Medications ?Medication ?Instructions ?Recorded ?Confirmed ?Type ferrous sulfate 137 mg (45 mg 137 mg PO DAILY 07/21/25 07/21/25 History iron) tablet,extended release (Slow Fe) Patient hx anesthesia problems: none Family hx anesthesia problems: none Results Review: All pre-operative results and documents have been reviewed as part of the pre-operative evaluation. [facility] Past Medical History Medical History (Updated 07/28/25 @ 13:54 by Librado Jole DO) PONV (postoperative nausea and vomiting) Asthma Fibromyalgia Morbid obesity with BMI of 45.0-49.9, adult Obesity Social History Social History Smoking packs per day: 1.5 Smoking cigarettes per day: 30.0 Years smoked: 10 Smoking pack-years: 15.00 Smoking status: Current every day smoker Tobacco type: cigarettes and e-cigarettes/vaping Second hand tobacco smoke exposure: Yes Additional smoking assessment comments: STATES MAYBE WILL SMOKE 1-2 CIGARETTES WHILE DRINKING Alcohol intake: current Alcohol use details: STATES MAYBE 3-4 DRINKS EVERY 2 WEEKS Substance use: current Substance use type: marijuana Other substance usage details: 1/3GM DAILY Last use: 04/26/21 Living arrangements: with family Spiritual care concerns: No Anes - Eval Final PreProcedure Day of Procedure 07/29/25 07:29 Patient weight: morbidly obese Heart: regular rate and rhythm Lungs: clear to auscultation Airway: Mallampati scale class III Neurological: alert and oriented Last oral intake: >/= 8 hours ASA classification: III Emergent: no Anesthetic plan: proceed Anesthesia type and monitoring: general GIVS and standard monitoring Results Review: All pre-operative results and documents have been reviewed as part of the pre-operative evaluation. Informed Consent: The patient's anesthetic plan and its attendant risks and benefits were discussed with the patient/family/POA. Questions were solicited and answers provided to the satisfaction of the patient/family/POA.
--- NOTE | 2025-07-29 07:42 | PM.OBTRLD ---
OB - Triage/Final Diagnosis Visit Information Comments/Additional reasons for admission: I have assessed the risk for this patient, Audra Tariq, and determined that she would benefit from observation care.
[2025-07-29 08:00] VITALS: BP 110/73; PULSE 90; RESP 16; TEMP 36.2; O2SAT 100
[2025-07-29] MEDS: LACTATED RINGERS 1,000 ML 30 ML IV CONT (08:00)
[2025-07-29] MEDS: ACETAMINOPHEN 500 MG TABLET 1000 MG PO (08:00)
[2025-07-29 08:30] LABS: BEDSIDEPREGUCG Negative (Negative)
--- NOTE | 2025-07-29 09:39 | S_PTH ---
PATIENT: Audra Tariq LOC: [facility] U#:[id number] AGE/SX: 24/F ROOM: RE07/29/[address]: Byron Grey MD : 2000 BED: DIS: 07/29/2025 SPEC #: [id number] RECD: 07/29/25 10:22 STATUS: RUBINA REQ #: [id number] JAVON: 07/29/25 09:[address]: Byron Grey DEPT: [facility] Surgical RECD BY: Varsha West ENTERED: 07/29/25 10:22 SP TYPE: Surgical OTHR DR: Eduardo AldridgeMD Tissues: A - Endometrial Curettings Procedures: Hematoxylin and Eosin Stain Gross and Microscopic Level 4
[2025-07-29 10:02] VITALS: BP 105/64; PULSE 84; RESP 14; O2SAT 97
--- NOTE | 2025-07-29 10:08 | P.OP_ITS ---
Procedure Note - Detailed Date of Procedure 07/29/25 Pre-op Diagnosis endometrial polyp Post-op Diagnosis Same Procedure Performed Hysteroscopy D&C with polypectomy Surgeon Byron Grey MD Anesthesia MAC Indications abnormal uterine bleeding Findings Redundant, thickened, possible polypoid tissue in the anterior uterine endometrium. Possible multiple polyps.. Appears fold with grooves running longitudinally.. Normal vulva, vagina, cervix. Description of Procedure the patient was taken the operating room. She was prepped and draped in the dorsal lithotomy position after induction of mac anesthesia. A speculum was placed in the vagina. The cervix was grasped with a tenaculum. The cervix was dilated about 1 cm. The hysteroscope was inserted. The intrauterine cavity and endocervix were evaluated. Hysteroscope was withdrawn. A medium-size curette was used to curettage all the surfaces were within the endometrial cavity. the sample was collected on Telfa and sent to pathology. The hys teroscope was reinserted and the above findings were noted anterior endometrium was shaved with the rotational blade resecting the polyps.. Patient tolerated the procedure well. The speculum and tenaculum were removed. She was taken recovery room in stable condition. Sponge lap and needle counts were correct x2. Estimated Blood Loss 40 Drains No Packing No Pathology Yes Complications No immediate complications Condition Stable Disposition PACU
[2025-07-29] MEDS: oxyCODONE HCL (*CRX) 5 MG TAB IR PO (10:29)
[2025-07-29 10:30] VITALS: BP 118/74; PULSE 76; RESP 20
[2025-07-29 11:00] VITALS: BP 113/78; PULSE 78; RESP 20
--- NOTE | 2025-08-25 03:15 | WPDHPUPDATE1 ---
History and Physical Update Update Date/Time: 08/25/25 03:15 History and Physical has been reviewed, including an updated exam of the patient. There are NO changes in the patient's condition. Risks, benefits, and alternatives have been discussed and questions answered. Patient agrees to proceed with procedure.
== END 2025-07-29 11:08 | disposition home or self-care (01) ==
PROVIDERS: PCP Family Medicine; Visit Provider Obstetrics & Gynecology
PROC: 0U5B8ZZ Destruction of Endometrium, Via Natural or Artificial Opening Endoscopic (ICD-10-PCS; CPT 58563; principal; 2025-07-29 09:00)
DX: N84.0 Polyp of corpus uteri (principal); E11.9 Type 2 diabetes mellitus without complications; I10 Essential (primary) hypertension; J45.909 Unspecified asthma, uncomplicated; F41.9 Anxiety disorder, unspecified; M79.7 Fibromyalgia; M51.34 Other intervertebral disc degeneration, thoracic region; M51.369 Other intervertebral disc degeneration, lumbar region without mention of lumbar back pain or lower extremity pain; F17.210 Nicotine dependence, cigarettes, uncomplicated; E66.01 Morbid (severe) obesity due to excess calories; Z68.42 Body mass index [BMI] 45.0-49.9, adult; Z98.890 Other specified postprocedural states; Z80.6 Family history of leukemia; Z82.49 Family history of ischemic heart disease and other diseases of the circulatory system
CPT/HCPCS: 58558; 88305; A9270; J1885; J2003; J2250; J2704; J3010; J7120; Q9968